=== PATIENT | male | born 1995 | race Caucasian/White ===

== ENCOUNTER → 2017-02-16 | Outpatient (CLI) | payer BC ==
[~2017-02-16] MED LIST: ASCO500C2 PO; BACITRACIN 50,000 UNIT ONE; BUPIVACAINE/PF 0.5% ONE; CELE200C PO; EPINEPHRINE 1 MG/ML, 1ML ONE; GABA300C10 PO; HYDR-3241 PO; LIDOCAINE/PF 1%-EPI 1:200K, 30 ML ONE; MULT-658 PO; THROMBIN 5,000 UNIT VIAL TP ONE
[2017-02-16 09:17] LABS: BASOPHILS # (AUTO) 0.03 x10^3/uL (0-0.1); BASOPHILS % (AUTO) 1 % (0-1); EOSINOPHILS # (AUTO) 0.16 x10^3/uL (0-0.4); EOSINOPHILS % (AUTO) 3 % (1-7); INTERNATIONAL NORMALIZED RATIO 1.09 (0.93-1.1); LYMPHOCYTES # (AUTO) 1.78 x10^3/uL (1-3.4); LYMPHOCYTES % (AUTO) 29 % (22-44); MD NO; MEAN CORPUSCULAR HEMOGLOBIN 30.6 pg (27.5-34.5); MEAN CORPUSCULAR HGB CONC 34.6 g/dL (33.2-36.2); MEAN CORPUSCULAR VOLUME 88.3 fL (81-97); MEAN PLATELET VOLUME 7.4 fL (7.4-10.4); MONOCYTES # (AUTO) 0.35 x10^3/uL (0.2-0.8); MONOCYTES % (AUTO) 6 % (2-9); NEUTROPHILS # (AUTO) 3.91 x10^3/uL (1.8-6.8); NEUTROPHILS % (AUTO) 63 % (42-75); PLATELET COUNT 214 x10^3/uL (130-400); PROTHROMBIN TIME 11.2 Seconds (9.6-11.5); RED BLOOD COUNT 5.59 x10^6/uL (4.38-5.82); RED CELL DISTRIBUTION WIDTH 11.5 % (9.4-14.8)
[2017-02-16 09:30] LABS: ALBUMIN 4.3 g/dL (3.4-5.0); ANION GAP 6 mmol/L (5-15); CHLORIDE 105 mmol/L (98-107)
[2017-02-16 09:33] LABS: CREATININE 0.84 mg/dL (0.7-1.3)
[2017-02-16 09:34] LABS: ALANINE AMINOTRANSFERASE 17 U/L (12-78); ALKALINE PHOSPHATASE 41 U/L (45-117); BILIRUBIN,TOTAL 1.1 mg/dL (0.2-1.0); TOTAL PROTEIN 7.8 g/dL (6.4-8.2)
[2017-02-16 09:57] LABS: HCT (SEDRATE) 49.4 % (39.2-51.8)
[2017-02-16 10:31] LABS: MICROSCOPIC NOT IND
[2017-02-16 10:37] LABS: CULTURE INDICATED? NO
== END ==
LOC: STAR 08:06
PROVIDERS: ATTEND Orthopaedic Surgery Orthopaedic Surgery of the Spine
DX: Z01.818 Encounter for other preprocedural examination (principal); M51.16 Intervertebral disc disorders with radiculopathy, lumbar region; R94.31 Abnormal electrocardiogram [ECG] [EKG]
CPT/HCPCS: 36415; 71020; 80053; 80074; 81003; 85025; 85610; 85651; 85730; 86703; 87899; 93005; G0435

== ENCOUNTER 2017-02-21 05:29 | Day surgery (SDC) | payer BC ==
[2017-02-16 08:25] VITALS: BP 112/64
[~2017-02-21] VITALS: Ht 172.7 cm; Wt 55.6 kg
[~2017-02-21 05:29] MED LIST changes: -ASCO500C2 PO; -BACITRACIN 50,000 UNIT ONE; -BUPIVACAINE/PF 0.5% ONE; -CELE200C PO; -EPINEPHRINE 1 MG/ML, 1ML ONE; -GABA300C10 PO; -LIDOCAINE/PF 1%-EPI 1:200K, 30 ML ONE; -MULT-658 PO; -THROMBIN 5,000 UNIT VIAL TP ONE
[2017-02-21] MEDS ORDERED: LACTATED RINGERS 1,000 ML IV SCH (06:18)
[2017-02-21] MEDS ORDERED: CELE200C PO (06:20)
[2017-02-21] MEDS ORDERED: GABA300C10 PO (06:20)
[2017-02-21] MEDS ORDERED: ASCO500C2 PO (06:20)
[2017-02-21] MEDS ORDERED: MULT-658 PO (06:20)
[2017-02-21 06:21] VITALS: BP 112/64
[2017-02-21] MEDS ORDERED: LIDOCAINE 1%, 2ML SQ PRN (06:30)
[2017-02-21] MEDS ORDERED: FENTANYL PF 250 MCG/5ML ONE (07:11)
[2017-02-21] MEDS ORDERED: MIDAZOLAM 1 MG/ML, 2ML ONE (07:11)
[2017-02-21] MEDS ORDERED: ACETAMINOPHEN 500 MG TABLET ONE ×2 (07:26→10:41)
[2017-02-21] MEDS ORDERED: GABAPENTIN 300 MG CAPSULE ONE ×2 (07:26→10:41)
[2017-02-21] MEDS ORDERED: SCOPOLAMINE PATCH, 1.5MG PATCH.TD72 TD ONE ×2 (07:27→10:41)
[2017-02-21] MEDS ORDERED: BACITRACIN 50,000 UNIT ONE (08:22)
[2017-02-21] MEDS ORDERED: ALBUTEROL SULFATE 2.5 MG/3 ML NPPB PRN (08:30)
[2017-02-21] MEDS ORDERED: hydrALAzine 20 MG/ML, 1ML IV PRN (08:30)
[2017-02-21] MEDS ORDERED: HYDROmorphone 1 MG/ML, 1ML IV PRN (08:30)
[2017-02-21] MEDS ORDERED: PROMETHAZINE 25 MG/ML, 1ML IV PRN (08:30)
[2017-02-21] MEDS ORDERED: METOPROLOL 1 MG/ML, 5ML IV PRN (08:30)
[2017-02-21] MEDS ORDERED: OXYcodone 5 MG/5 ML ORAL.SOL UDC PO PRN (08:30)
[2017-02-21] MEDS ORDERED: FENTANYL PF 100 MCG/2ML IV PRN (08:30)
[2017-02-21] MEDS ORDERED: LORazepam 2 MG/ML, 1ML IVPush PRN (08:30)
[2017-02-21] MEDS ORDERED: MEPERIDINE/PF 25MG/0.5ML IVPush PRN (08:30)
[2017-02-21] MEDS ORDERED: BUPIVACAINE/PF-EPI 0.5% 1:200K INFIL ONE (08:54)
[2017-02-21] MEDS ORDERED: LIDOCAINE 1%-EPI 1:100K, 30ML INFIL ONE (08:56)
[2017-02-21] MEDS ORDERED: DEXAMETHASONE 4 MG/ML, 1ML ONE (09:41)
[2017-02-21] MEDS ORDERED: PROPOFOL 10 MG/ML, 20ML ONE (09:41)
[2017-02-21] MEDS ORDERED: ONDANSETRON 2MG/ML, 2ML ONE (09:41)
[2017-02-21] MEDS ORDERED: GLYCOPYRROLATE 0.2MG/1ML, 5ML ONE (09:41)
[2017-02-21] MEDS ORDERED: CEFAZOLIN 1,000 MG ONE (09:41)
[2017-02-21] MEDS ORDERED: ROCURONIUM 10 MG/ML,10ML ONE (09:41)
[2017-02-21] MEDS ORDERED: NEOSTIGMINE 1 MG/ML, 10ML ONE (09:41)
[2017-02-21] MEDS ORDERED: SUCCINYLCHOLINE 20 MG/ML, 10ML ONE (09:41)
[2017-02-21] MEDS ORDERED: OXYcodone 5 MG/5 ML ORAL.SOL UDC ONE (10:18)
[2017-02-21] MEDS ORDERED: FENTANYL PF 100 MCG/2ML ONE (10:18)
== END 2017-02-21 14:15 ==
LOC: OUT 05:29
PROVIDERS: ATTEND Orthopaedic Surgery Orthopaedic Surgery of the Spine
DX: M51.17 Intervertebral disc disorders with radiculopathy, lumbosacral region (principal); Z98.890 Other specified postprocedural states
CPT/HCPCS: 63030; 72100; C1751; J0171; J0330; J0690; J1100; J2250; J2405; J2704; J2710; J3010; J3490; J7120